=== PATIENT | male | born 1955 | race Caucasian/White ===

== ENCOUNTER → 2016-09-30 | Outpatient (CLI) | payer BC ==
[2016-09-30 15:53] LABS: ASPARTATE AMINO TRANSFERASE 39 IU/L (21-57); BILIRUBIN,TOTAL 0.5 mg/dL (0.3-1.2); BLOOD UREA NITROGEN 13 mg/dL (7-22); BUN/CREATININE RATIO 16.25 (6-20); CHLORIDE 102 meq/L (98-112); CREATININE 0.8 mg/dL (0.70-1.50); EST GLOMERULAR FILTRATION > 60 (>60 ml/min/1.73m(2)); GLUCOSE 107 mg/dL (78-110); HDL CHOLESTEROL 45 mg/dL (40-150); POTASSIUM 4.4 meq/L (3.8-5.2); SODIUM 141 meq/L (135-145); TOTAL PROTEIN 7.3 g/dL (6.1-8.0); TRIGLYCERIDES 197 mg/dL (44-200)
== END ==
LOC: LAB 09:59
PROVIDERS: ATTEND Physician Assistant Medical
DX: N28.89 Other specified disorders of kidney and ureter (principal)
CPT/HCPCS: 80053; 80061; 83690